=== PATIENT | female | born 1990 | race Caucasian/White ===

== ENCOUNTER 2016-09-14 17:37 | Emergency (ER) | payer MEDICAID ==
[2016-09-14] MEDS ORDERED: Ondansetron 4 MG/2 ML SDV IVPUSH ONE (18:13)
[2016-09-14] MEDS ORDERED: Sodium Chloride 0.9% 1,000 ML IV SCH (18:15)
[2016-09-14 19:12] VITALS: BP 134/89
[2016-09-14] MEDS ORDERED: Sodium Chloride 0.9% 10 ML Syringe FLUSH PRN (19:28)
[2016-09-14] MEDS ORDERED: Iopamidol 612 MG/ML 150 ML Bottle IV SCH (19:30)
[2016-09-14] MEDS ORDERED: Sodium Chloride 0.9% 100 ML IV SCH (19:30)
[2016-09-14] MEDS ORDERED: Lactated Ringers 1,000 ML IV SCH (19:30)
[2016-09-14] MEDS ORDERED: Ketorolac 30 MG/ML SDV IVPUSH ONE (20:37)
[2016-09-14] MEDS ORDERED: HYDROmorphone 1 MG/ML Syringe IVPUSH ONE (21:11)
--- NOTE | 2016-09-14 21:23 | EDM.PDOC ---
ED HPI GI/ABDOMINAL - General Chief Complaint: Abdominal Pain Stated Complaint: FEVER,VOMITING,BODY ACHES Time Seen by Provider: 09/14/16 18:02 Source: Reports: Patient History Limitations: Reports: No limitations - History of Present Illness INITIAL COMMENTS - FREE TEXT/NARRATIVE: History of present illness: [26-year-old female presenting with epigastric abdominal pain intermittent for the last few days sometimes 10 out of 10 intensity. She has not had anything like this before. She is status post cholecystectomy. She's had low grade fevers. She had an episode of vomiting this morning. 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 She's had a little bit of a headache. She has had no constipation diarrhea or dysuria. No history of recent ulcer was over at 10 years of age she may have had an ulcer and was Helicobacter pylori positive. ] Review of systems: As per history of present illness and below otherwise all systems reviewed and negative. Past medical history: As per history of present illness and as reviewed below otherwise noncontributory. Surgical history: As per history of present illness and as reviewed below otherwise noncontributory. Social history: No reported history of drug or alcohol abuse. Family history: As per history of present illness and as reviewed below otherwise noncontributory. Physical exam: HEENT: Atraumatic, normocephalic, pupils reactive, negative for conjunctival pallor or scleral icterus, mucous membranes moist, throat clear, neck supple, nontender, trachea midline. Lungs: Clear to auscultation, breath sounds equal bilaterally, Heart: S1S2, regular Abdomen: She has tenderness to palpation of the epigastric area her right upper quadrant and right lower quadrant are negative for pain Extremities: Atraumatic, negative for cords or calf pain. Neurovascular unremarkable. Neuro: Awake, alert, oriented. Exam nonfocal. Diagnostics: [CBC shows a slightly low white count he complete metabolic panel shows elevations of AST and ALT alkaline phosphatase is normal her calcium is slightly low. Abdominal pelvic CT was negative.] Therapeutics: [She received IV fluids and IV Dilaudid for pain as well as Zofran] Impression: [Epigastric abdominal pain with elevation of AST and ALT] Plan: [Mid ordered hepatitis panel and she will followup with her primary. I'm sending her out with Dilaudid 2 mg every 6 hours when necessary #10. Her mother is a nurse here at the hospital and to present back in the discussion of her disposition. ] Definitive disposition and diagnosis as appropriate pending reevaluation and review of above. - Related Data Allergies/ADRs: Allergies Allergy/AdvReac Type Severity Reaction Status Date / Time codeine Allergy Intermediate Difficulty Verified 07/31/14 19:12 Breathing clarithromycin [From Biaxin] Allergy Mild Nausea Verified 07/31/14 19:12 sertraline HCl [From Zoloft] Allergy Mild Nausea Verified 07/31/14 19:12 chlorprep Allergy Intermediate Rash Uncoded 07/31/14 19:12 Home Meds: Home Meds Naproxen Sodium [Aleve] 220 mg PO BID PRN 05/16/13 [History] buPROPion [Wellbutrin] 300 mg PO DAILY 05/16/13 [History] Norgestrel-Ethinyl Estradiol [[id number]-89 Tablet] 1 tab PO ASDIRECTED [History] Past Medical History Other HEENT History: tubes at a younger age Other OB/BYN History: s/p C- section 2 weeks ago Other Immunologic History: hx of MRSA has been cleared with 2 negative cultures - Infectious Disease History Infectious Disease History: Reports: Chicken pox, Shingles - Past Surgical History GI Surgical History: Reports: Cholecystectomy Female Surgical History: Reports: Cystectomy Social & Family History - Tobacco Use Smoking Status *Q: Never Smoker Second Hand Smoke Exposure: No - Caffeine Use Caffeine Use: Reports: Soda - Alcohol Use Days Per Week of Alcohol Use: 0 - Recreational Drug Use Recreational Drug Use: No ED ROS GENERAL - Review of Systems Review Of Systems: ROS reveals no pertinent complaints other than HPI. ED EXAM, GI/ABD - Physical Exam Exam: See Below Course - Vital Signs Last Recorded V/S: Last Vital Signs Temp 37.9 C 09/14/16 19:11 Pulse 98 09/14/16 19:11 Resp 18 09/14/16 19:11 BP 134/89 09/14/16 19:11 Pulse Ox 97 09/14/16 19:11 - Orders/Labs/Meds Orders: Active Orders 24 hr Category Date Time Status Abdomen Pelvis w Cont [CT] Stat Exams 09/14/16 19:24 Taken CULTURE URINE [RM] Stat Lab 09/14/16 19:00 Received HEPATITIS PANEL,ACUTE [REF] Stat Lab 09/14/16 21:07 Ordered Iopamidol [Isovue-300 (61%)] Med 09/14/16 19:30 Active 150 ml IV . DIRECTED Lactated Ringers [Ringers, Lactated] 1,000 ml Med 09/14/16 19:30 Active IV ASDIRECTED Sodium Chloride 0.9% [Normal Saline] 1,000 ml Med 09/14/16 18:15 Active IV ASDIRECTED Sodium Chloride 0.9% [Normal Saline] 100 ml Med 09/14/16 19:30 Active IV ASDIRECTED Sodium Chloride 0.9% [Saline Flush] Med 09/14/16 19:28 Active 10 ml FLUSH ASDIRECTED PRN Medication Orders Sodium Chloride (Normal Saline) 1,000 mls @ 999 mls/hr IV ASDIRECTED CACHORRO Last Admin: 09/14/16 18:31 Dose: 999 mls/hr Lactated Ringer's (Ringers, Lactated) 1,000 mls @ 500 mls/hr IV ASDIRECTED CACHORRO Last Admin: 09/14/16 19:29 Dose: 500 mls/hr Sodium Chloride (Normal Saline) 100 mls @ 3 mls/sec IV ASDIRECTED CACHORRO Last Admin: 09/14/16 19:45 Dose: 3 mls/sec Iopamidol (Isovue-300 (61%)) 150 ml IV . DIRECTED CACHORRO Last Admin: 09/14/16 19:45 Dose: 150 ml Sodium Chloride (Saline Flush) 10 ml FLUSH ASDIRECTED PRN PRN Reason: Keep Vein Open Last Admin: 09/14/16 19:45 Dose: 10 ml Labs: Laboratory Tests 09/14/16 09/14/16 09/14/16 Range/Units 18:21 18:21 18:21 WBC 4.2 L (4.5-11.0) K/uL RBC 5.06 (3.30-5.50) M/uL Hgb 15.4 H (12.0-15.0) g/dL Hct 43.6 (36.0-48.0) % MCV 86 (80-98) fL MCH 30 (27-31) pg MCHC 35 (32-36) % Plt Count 246 (150-400) K/uL Neut % (Auto) 61 (36-66) % Lymph % (Auto) 30 (24-44) % [place] % (Auto) 7 H (2-6) % Eos % (Auto) 1 L (2-4) % Baso % (Auto) 1 (0-1) % Sodium 137 L (140-148) mmol/L Potassium 3.6 (3.6-5.2) mmol/L Chloride 102 (100-108) mmol/L Carbon Dioxide 23 (21-32) mmol/L Anion Gap 15.6 H (5.0-14.0) mmol/L BUN 10 (7-18) mg/dL Creatinine 0.8 (0.6-1.0) mg/dL Est Cr Clr Drug Dosing 88.15 mL/min Estimated GFR (MDRD) > 60 (>60) Glucose 106 (74-106) mg/dL Lactic Acid 1.1 (0.4-2.0) mmol/L Calcium 8.4 L (8.5-10.1) mg/dL Total Bilirubin (0.2-1.0) mg/dL Direct Bilirubin (0.0-0.2) mg/dL Indirect Bilirubin AST (15-37) U/L ALT (12-78) U/L Alkaline Phosphatase (46-116) U/L C-Reactive Protein (0.0-0.3) mg/dL Total Protein (6.4-8.2) g/dL Albumin (3.4-5.0) g/dL Globulin (2.3-3.5) g/dL Albumin/Globulin Ratio (1.2-2.2) Amylase (25-115) U/L Lipase (73-393) U/L Urine Color Urine Appearance Urine pH (4.5-8.0) Ur Specific [place] (1.008-1.030) Urine Protein (NEGATIVE) mg/dL Urine Glucose (UA) (NEGATIVE) mg/dL Urine Ketones (NEGATIVE) mg/dL Urine Occult Blood (NEGATIVE) Urine Nitrite (NEGATIVE) Urine Bilirubin (NEGATIVE) Urine Urobilinogen (NORMAL) mg/dL Ur Leukocyte Esterase (NEGATIVE) Urine RBC (0-5) Urine WBC (0-5) Ur Epithelial Cells Amorphous Sediment Urine Bacteria Urine Mucus Urine HCG, Qual Monoscreen (NEGATIVE) 09/14/16 09/14/16 09/14/16 Range/Units 18:21 18:33 18:33 WBC (4.5-11.0) K/uL RBC (3.30-5.50) M/uL Hgb (12.0-15.0) g/dL Hct (36.0-48.0) % MCV (80-98) fL MCH (27-31) pg MCHC (32-36) % Plt Count (150-400) K/uL Neut % (Auto) (36-66) % Lymph % (Auto) (24-44) % [place] % (Auto) (2-6) % Eos % (Auto) (2-4) % Baso % (Auto) (0-1) % Sodium (140-148) mmol/L Potassium (3.6-5.2) mmol/L Chloride (100-108) mmol/L Carbon Dioxide (21-32) mmol/L Anion Gap (5.0-14.0) mmol/L BUN (7-18) mg/dL Creatinine (0.6-1.0) mg/dL Est Cr Clr Drug Dosing mL/min Estimated GFR (MDRD) (>60) Glucose (74-106) mg/dL Lactic Acid (0.4-2.0) mmol/L Calcium (8.5-10.1) mg/dL Total Bilirubin 0.7 (0.2-1.0) mg/dL Direct Bilirubin 0.30 H (0.0-0.2) mg/dL Indirect Bilirubin 0.40 AST 124 H (15-37) U/L ALT 133 H (12-78) U/L Alkaline Phosphatase 96 (46-116) U/L C-Reactive Protein 5.06 H (0.0-0.3) mg/dL Total Protein 7.4 (6.4-8.2) g/dL Albumin 3.6 (3.4-5.0) g/dL Globulin 3.8 H (2.3-3.5) g/dL Albumin/Globulin Ratio 1.0 L (1.2-2.2) Amylase 35 (25-115) U/L Lipase 117 (73-393) U/L Urine Color Yellow Urine Appearance Cloudy Urine pH 6.0 (4.5-8.0) Ur Specific [place] 1.020 (1.008-1.030) Urine Protein Negative (NEGATIVE) mg/dL Urine Glucose (UA) Normal (NEGATIVE) mg/dL Urine Ketones Negative (NEGATIVE) mg/dL Urine Occult Blood Negative (NEGATIVE) Urine Nitrite Negative (NEGATIVE) Urine Bilirubin Small (NEGATIVE) Urine Urobilinogen 8 (NORMAL) mg/dL Ur Leukocyte Esterase Negative (NEGATIVE) Urine RBC 0-5 (0-5) Urine WBC 5-10 H (0-5) Ur Epithelial Cells Many Amorphous Sediment Not seen Urine Bacteria Many Urine Mucus Many Urine HCG, Qual Negative Monoscreen (NEGATIVE) 09/14/16 Range/Units 19:21 WBC (4.5-11.0) K/uL RBC (3.30-5.50) M/uL Hgb (12.0-15.0) g/dL Hct (36.0-48.0) % MCV (80-98) fL MCH (27-31) pg MCHC (32-36) % Plt Count (150-400) K/uL Neut % (Auto) (36-66) % Lymph % (Auto) (24-44) % [place] % (Auto) (2-6) % Eos % (Auto) (2-4) % Baso % (Auto) (0-1) % Sodium (140-148) mmol/L Potassium (3.6-5.2) mmol/L Chloride (100-108) mmol/L Carbon Dioxide (21-32) mmol/L Anion Gap (5.0-14.0) mmol/L BUN (7-18) mg/dL Creatinine (0.6-1.0) mg/dL Est Cr Clr Drug Dosing mL/min Estimated GFR (MDRD) (>60) Glucose (74-106) mg/dL Lactic Acid (0.4-2.0) mmol/L Calcium (8.5-10.1) mg/dL Total Bilirubin (0.2-1.0) mg/dL Direct Bilirubin (0.0-0.2) mg/dL Indirect Bilirubin AST (15-37) U/L ALT (12-78) U/L Alkaline Phosphatase (46-116) U/L C-Reactive Protein (0.0-0.3) mg/dL Total Protein (6.4-8.2) g/dL Albumin (3.4-5.0) g/dL Globulin (2.3-3.5) g/dL Albumin/Globulin Ratio (1.2-2.2) Amylase (25-115) U/L Lipase (73-393) U/L Urine Color Urine Appearance Urine pH (4.5-8.0) Ur Specific [place] (1.008-1.030) Urine Protein (NEGATIVE) mg/dL Urine Glucose (UA) (NEGATIVE) mg/dL Urine Ketones (NEGATIVE) mg/dL Urine Occult Blood (NEGATIVE) Urine Nitrite (NEGATIVE) Urine Bilirubin (NEGATIVE) Urine Urobilinogen (NORMAL) mg/dL Ur Leukocyte Esterase (NEGATIVE) Urine RBC (0-5) Urine WBC (0-5) Ur Epithelial Cells Amorphous Sediment Urine Bacteria Urine Mucus Urine HCG, Qual Monoscreen Negative (NEGATIVE) Meds: Medications Generic Name Dose Route Start Last Admin Trade Name Freq PRN Reason Stop Dose Admin Sodium Chloride 1,000 mls @ 999 mls/hr 09/14/16 18:15 09/14/16 18:31 Normal Saline IV 999 mls/hr ASDIRECTED CACHORRO Administration Lactated Ringer's 1,000 mls @ 500 mls/hr 09/14/16 19:30 09/14/16 19:29 Ringers, Lactated IV 500 mls/hr ASDIRECTED CACHORRO Administration Sodium Chloride 100 mls @ 3 mls/sec 09/14/16 19:30 09/14/16 19:45 Normal Saline IV 3 mls/sec ASDIRECTED CACHORRO Administration Iopamidol 150 ml 09/14/16 19:30 09/14/16 19:45 Isovue-300 (61%) IV 150 ml . DIRECTED CACHORRO Administration Sodium Chloride 10 ml 09/14/16 19:28 09/14/16 19:45 Saline Flush FLUSH 10 ml ASDIRECTED PRN Administration Keep Vein Open Discontinued Medications Generic Name Dose Route Start Last Admin Trade Name Freq PRN Reason Stop Dose Admin Hydromorphone HCl 1 mg 09/14/16 21:11 Dilaudid IVPUSH 09/14/16 21:12 ONETIME ONE Ketorolac Tromethamine 15 mg 09/14/16 20:37 09/14/16 20:42 Toradol IVPUSH 09/14/16 20:38 15 mg ONETIME ONE Administration Ondansetron HCl 4 mg 09/14/16 18:13 09/14/16 18:33 Zofran IVPUSH 09/14/16 18:14 4 mg ONETIME ONE Administration Departure - Departure Time of Disposition: 21:21 Disposition: Home, Self-Care 01 Condition: fair Clinical Impression: Epigastric abdominal pain, Abnormal liver enzymes Forms: ED Department Discharge Additional Instructions: Please followup with your primary care doctor. We are doing a hepatitis panel which will probably take a few days to get back. I to get to feeling better soon. If you become much sicker than he will need to return to the emergency room for another evaluation - My Orders Last 24 Hours: My Active Orders 09/14/16 18:15 Sodium Chloride 0.9% [Normal Saline] 1,000 ml IV ASDIRECTED 09/14/16 19:00 CULTURE URINE [RM] Stat 09/14/16 19:24 Abdomen Pelvis w Cont [CT] Stat 09/14/16 19:28 Sodium Chloride 0.9% [Saline Flush] 10 ml FLUSH ASDIRECTED PRN 09/14/16 19:30 Iopamidol [Isovue-300 (61%)] 150 ml IV . DIRECTED Lactated Ringers [Ringers, Lactated] 1,000 ml IV ASDIRECTED Sodium Chloride 0.9% [Normal Saline] 100 ml IV ASDIRECTED 09/14/16 21:07 HEPATITIS PANEL,ACUTE [REF] Stat - Assessment/Plan Last 24 Hours: My Active Orders 09/14/16 18:15 Sodium Chloride 0.9% [Normal Saline] 1,000 ml IV ASDIRECTED 09/14/16 19:00 CULTURE URINE [RM] Stat 09/14/16 19:24 Abdomen Pelvis w Cont [CT] Stat 09/14/16 19:28 Sodium Chloride 0.9% [Saline Flush] 10 ml FLUSH ASDIRECTED PRN 09/14/16 19:30 Iopamidol [Isovue-300 (61%)] 150 ml IV . DIRECTED Lactated Ringers [Ringers, Lactated] 1,000 ml IV ASDIRECTED Sodium Chloride 0.9% [Normal Saline] 100 ml IV ASDIRECTED 09/14/16 21:07 HEPATITIS PANEL,ACUTE [REF] Stat
== END 2016-09-14 21:52 | disposition home or self-care (01) ==
LOC: JP.ED 17:37
DX: R10.13 Epigastric pain (principal); R74.8 Abnormal levels of other serum enzymes; R94.5 Abnormal results of liver function studies; Z88.5 Allergy status to narcotic agent; Z88.8 Allergy status to other drugs, medicaments and biological substances; Z79.899 Other long term (current) drug therapy; Z90.49 Acquired absence of other specified parts of digestive tract
CPT/HCPCS: 36415; 74177; 80048; 80074; 80076; 81001; 81025; 82150; 83605; 83690; 85025; 86140; 86308; 87086; 96361; 96374; 96375; 99284; J1170; J1885; J2405; J7030; J7040; J7050; J7120; 87088; 87186

== ENCOUNTER 2016-09-17 18:42 | Emergency (ER) | payer MEDICAID ==
--- NOTE | 2016-09-17 20:09 | EDM.PDOC ---
ED HPI GI/ABDOMINAL - General Chief Complaint: Gastrointestinal Problem Stated Complaint: ILLNESS Time Seen by Provider: 09/17/16 19:42 Source: Reports: Patient, Old records, RN notes reviewed History Limitations: Reports: No limitations - History of Present Illness INITIAL COMMENTS - FREE TEXT/NARRATIVE: 26-year-old female presents emergency department today with complaint of right upper quadrant pain, diarrhea and fever she was evaluated emergency department 5 days prior for the right upper quadrant pain workup at that time shows elevated AST and ALT with a ratio 1-1, C-reactive protein elevated at 5 mildly elevated direct bilirubin CT scan of the scan of the abdomen shows no acute abdominal process, her largest concern today is the development of the diarrhea which has been going on for about 2 days loose watery stools. The pain in the abdomen is controlled with Dilaudid she does have intermittent nausea which is controlled with Zofran - Related Data Allergies/ADRs: Allergies Allergy/AdvReac Type Severity Reaction Status Date / Time codeine Allergy Intermediate Difficulty Verified 09/17/16 19:24 Breathing clarithromycin [From Biaxin] Allergy Mild Nausea Verified 09/17/16 19:24 sertraline HCl [From Zoloft] Allergy Mild Nausea Verified 09/17/16 19:24 chlorprep Allergy Intermediate Rash Uncoded 09/17/16 19:24 Home Meds: Home Meds Naproxen Sodium [Aleve] 220 mg PO BID PRN 05/16/13 [History] buPROPion [Wellbutrin] 300 mg PO DAILY 05/16/13 [History] Norgestrel-Ethinyl Estradiol [Uea-Urqynjdj-75 Tablet] 1 tab PO ASDIRECTED [History] Past Medical History HEENT History: Reports: Impaired vision Other HEENT History: tubes at a younger age [employer] History: Reports: Other OB/BYN History: s/p C- section 2 weeks ago Psychiatric History: Reports: Anxiety Immunologic History: Reports: Other (see below) Other Immunologic History: hx of MRSA has been cleared with 2 negative cultures - Infectious Disease History Infectious Disease History: Reports: Chicken pox, MRSA - Past Surgical History HEENT Surgical History: Reports: Myringotomy w tube(s) GI Surgical History: Reports: Cholecystectomy Female Surgical History: Reports: section, Cystectomy Social & Family History - Tobacco Use Smoking Status *Q: Never Smoker Second Hand Smoke Exposure: No - Caffeine Use Caffeine Use: Reports: Soda - Alcohol Use Days Per Week of Alcohol Use: 0 - Recreational Drug Use Recreational Drug Use: No ED ROS GENERAL - Review of Systems Review Of Systems: See Below Constitutional: Reports: fever HEENT: Reports: No symptoms Respiratory: Reports: No Symptoms Cardiovascular: Reports: No symptoms GI/Abdominal: Reports: Abdominal pain, Diarrhea, Nausea. Denies: Vomiting Musculoskeletal: Reports: no symptoms Skin: Reports: no symptoms Neurological: Reports: No Symptoms ED EXAM, GI/ABD - Physical Exam Exam: See Below Text/Narrative:: General: female, not in any distress, alert and oriented x3 HEENT: head is atraumatic normocephalic, eyes pupils equal round reactive to light and accommodation sclera clear no conjunctivitis appreciated. Ears tympanic membranes clear and zamora landmarks and light reflex are present bilaterally canals are clear. Nose no septal deviation, nares are clear, no blood present. Mouth mucosa is moist and pink no erythema or exudate noted in soft palate, tongue is midline uvula is midline, dentition is intact. Neck: Supple no thyromegaly no tracheal deviation. Nodes: Cervical nodes subclavicular nodes nontender no palpable lymphadenopathy noted. Lungs: clear to auscultation bilaterally with symmetrical respirations, no adventitious noise appreciated. CV: Regular rate and rhythm S1 and S2 appreciated no murmurs rubs or gallops noted. Abdomen: Soft, tender epigastric region, no palpable masses or organomegaly appreciated, no distention no guarding bowel sounds are present, . Neuro: Cranial nerves II through XII grossly intact Skin: Warm and dry, intact Extremities: No lower extremity edema appreciated, Course - Vital Signs Last Recorded V/S: Last Vital Signs Temp 100.4 F 09/17/16 19:24 Pulse 77 09/17/16 21:24 Resp 20 09/17/16 21:24 BP 127/84 09/17/16 21:24 Pulse Ox 96 09/17/16 21:24 - Orders/Labs/Meds Orders: Active Orders 24 hr Category Date Time Status Abdomen Ltd [US] Stat Exams 09/17/16 20:04 Taken Labs: Laboratory Tests 09/17/16 09/17/16 09/17/16 Range/Units 20:15 20:15 20:15 WBC 5.7 (4.5-11.0) K/uL RBC 4.87 (3.30-5.50) M/uL Hgb 14.6 (12.0-15.0) g/dL Hct 42.6 (36.0-48.0) % MCV 88 (80-98) fL MCH 30 (27-31) pg MCHC 34 (32-36) % Plt Count 242 (150-400) K/uL Neut % (Auto) 47 (36-66) % Lymph % (Auto) 40 (24-44) % [place] % (Auto) 9 H (2-6) % Eos % (Auto) 3 (2-4) % Baso % (Auto) 2 H (0-1) % PT (9.5-12.0) sec INR (0.80-1.20) Sodium 141 (140-148) mmol/L Potassium 3.4 L (3.6-5.2) mmol/L Chloride 104 (100-108) mmol/L Carbon Dioxide 25 (21-32) mmol/L Anion Gap 15.4 H (5.0-14.0) mmol/L BUN 8 (7-18) mg/dL Creatinine 0.9 (0.6-1.0) mg/dL Est Cr Clr Drug Dosing 78.36 mL/min Estimated GFR (MDRD) > 60 (>60) Glucose 83 (74-106) mg/dL Calcium 8.2 L (8.5-10.1) mg/dL Total Bilirubin 0.4 (0.2-1.0) mg/dL AST 79 H (15-37) U/L ALT 159 H (12-78) U/L Alkaline Phosphatase 130 H (46-116) U/L C-Reactive Protein 1.31 H (0.0-0.3) mg/dL Total Protein 7.1 (6.4-8.2) g/dL Albumin 3.3 L (3.4-5.0) g/dL Globulin 3.8 H (2.3-3.5) g/dL Albumin/Globulin Ratio 0.9 L (1.2-2.2) // Range/Units 20:22 WBC (4.5-11.0) K/uL RBC (3.30-5.50) M/uL Hgb (12.0-15.0) g/dL Hct (36.0-48.0) % MCV (80-98) fL MCH (27-31) pg MCHC (32-36) % Plt Count (150-400) K/uL Neut % (Auto) (36-66) % Lymph % (Auto) (24-44) % [place] % (Auto) (2-6) % Eos % (Auto) (2-4) % Baso % (Auto) (0-1) % PT 10.6 (9.5-12.0) sec INR 1.00 (0.80-1.20) Sodium (140-148) mmol/L Potassium (3.6-5.2) mmol/L Chloride (100-108) mmol/L Carbon Dioxide (21-32) mmol/L Anion Gap (5.0-14.0) mmol/L BUN (7-18) mg/dL Creatinine (0.6-1.0) mg/dL Est Cr Clr Drug Dosing mL/min Estimated GFR (MDRD) (>60) Glucose (74-106) mg/dL Calcium (8.5-10.1) mg/dL Total Bilirubin (0.2-1.0) mg/dL AST (15-37) U/L ALT (12-78) U/L Alkaline Phosphatase (46-116) U/L C-Reactive Protein (0.0-0.3) mg/dL Total Protein (6.4-8.2) g/dL Albumin (3.4-5.0) g/dL Globulin (2.3-3.5) g/dL Albumin/Globulin Ratio (1.2-2.2) Departure - Departure Time of Disposition: 22:07 Disposition: Home, Self-Care 01 Condition: good Clinical Impression: Epigastric abdominal pain Forms: ED Department Discharge Additional Instructions: continue to use your pain medications as prescribed, use Zofran as needed for nausea and vomiting symptoms try the Anaspaz for cramping symptoms, keep your followup appointment with her primary care provider - My Orders Last 24 Hours: My Active Orders 09/17/16 20:04 op5 [US] Stat - Assessment/Plan Last 24 Hours: My Active Orders 09/17/16 20:04 op5 [US] Stat Plan: Assessment Acuity = acute Site and laterality =right upper quadrant pain suspicious for hepatitis Etiology = unclear etiology Manifestations = fever Location of injury = home Lab values = CBC within normal limits, potassium low at 2.4 consistent hypokalemia KCl elevated at 79 ALT elevated 159 alkaline phosphatase elevated at 1:30 CRP now down to 1.31 ultrasound was negative for any fatty liver disease otherwise unremarkable Plan I did review lab work and ultrasound results with her hepatitis panel is pending she'll follow up with her primary care appointment on the fifth of next month refilled medication of Zofran also prescription for Anaspaz Patient was in agreement with the plan all questions were answered, they were instructed to return to the emergency department or call for worsening symptoms. This note was dictated using [employer] voice recognition software please call with any questions.
[2016-09-17 21:25] VITALS: BP 127/84
== END 2016-09-17 22:17 | disposition home or self-care (01) ==
LOC: JP.ED 18:42
DX: R10.13 Epigastric pain (principal); F41.9 Anxiety disorder, unspecified; Z88.1 Allergy status to other antibiotic agents; Z88.5 Allergy status to narcotic agent; Z88.8 Allergy status to other drugs, medicaments and biological substances; Z96.22 Myringotomy tube(s) status; Z90.49 Acquired absence of other specified parts of digestive tract; Z98.890 Other specified postprocedural states
CPT/HCPCS: 36415; 76705; 80053; 85025; 85610; 86140; 99284-25

== ENCOUNTER 2019-03-04 12:26 | Emergency (ER) | payer BC, MEDICAID ==
[2019-03-04 13:32] VITALS: BP 128/71
[2019-03-04] MEDS ORDERED: Lidocaine 2% Viscous Solution 15 ML Cup PO ONE (13:48)
--- NOTE | 2019-03-04 13:53 | EDM.PDOC ---
ED HPI GENERAL MEDICAL PROBLEM - General Chief Complaint: Gastrointestinal Problem Stated Complaint: FEELS LIKE FOOD IS STUCK IN THROAT Time Seen by Provider: 03/04/19 13:35 Source of Information: Reports: Patient History Limitations: Reports: No Limitations - History of Present Illness INITIAL COMMENTS - FREE TEXT/NARRATIVE: 29-year-old female who ate breakfast this morning at 9:30, since that time she feels like there is something stuck in her throat. She is able to swallow, drink fluids and swallow solid foods without problem. It's getting very upset and tearful. No difficulties breathing. It really isn't painful, it just feels very uncomfortable. Onset: Sudden Duration: Hour(s): (5 hours) Location: Reports: Other (She points to her upper chest as a source of discomfort) Associated Symptoms: Reports: No Other Symptoms throat Pain Score (Numeric/FACES): 4 - Related Data Allergies Allergy/AdvReac Type Severity Reaction Status Date / Time codeine Allergy Intermediate Difficulty Verified 03/04/19 13:35 Breathing clarithromycin [From Biaxin] Allergy Mild Nausea Verified 03/04/19 13:35 sertraline HCl [From Zoloft] Allergy Mild Nausea Verified 03/04/19 13:35 chlorprep Allergy Intermediate Rash Uncoded 03/04/19 13:35 Home Meds: Home Meds NK [No Known Home Meds] 03/04/19 [History] Past Medical History HEENT History: Reports: Impaired Vision Other HEENT History: tubes at a younger age 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: Other SOFTWARE PROGRAM MANAGER History: s/p C- section 2 weeks ago Psychiatric History: Reports: Anxiety Immunologic History: Reports: Other (See Below) Other Immunologic History: hx of MRSA has been cleared with 2 negative cultures - Infectious Disease History Infectious Disease History: Reports: Chicken Pox, MRSA - Past Surgical History HEENT Surgical History: Reports: Myringotomy w Tube(s) GI Surgical History: Reports: Cholecystectomy Female Surgical History: Reports: Section, Cystectomy Social & Family History - Tobacco Use Smoking Status *Q: Never Smoker - Caffeine Use Caffeine Use: Reports: Soda - Recreational Drug Use Recreational Drug Use: No ED ROS GENERAL - Review of Systems Review Of Systems: See Below Constitutional: Denies: Fever, Chills HEENT: Reports: Other (Foreign body sensation in throat) Respiratory: Denies: Shortness of Breath, Pleuritic Chest Pain Cardiovascular: Denies: Chest Pain GI/Abdominal: Denies: Nausea, Vomiting Skin: Reports: No Symptoms Neurological: Denies: Headache ED EXAM, GI/ABD - Physical Exam Exam: See Below Exam Limited By: No Limitations General Appearance: Alert, No Apparent Distress, Anxious Eyes: Bilateral: Normal Appearance Throat/Mouth: Normal Inspection Respiratory/Chest: No Respiratory Distress, Lungs Clear Cardiovascular: Regular Rate, Rhythm GI/Abdominal Exam: Non-Tender Course - Vital Signs Last Recorded V/S: Last Vital Signs Temp 97.4 F 03/04/19 13:34 Pulse 89 03/04/19 13:34 Resp 16 03/04/19 13:34 BP 128/71 03/04/19 13:34 Pulse Ox 98 03/04/19 13:34 - Orders/Labs/Meds Meds: Medications Discontinued Medications Generic Name Dose Route Start Last Admin Trade Name Chavoq PRN Reason Stop Dose Admin Lidocaine HCl 15 ml 03/04/19 13:48 03/04/19 13:58 Xylocaine 2% Viscous PO 03/04/19 13:49 15 ml ONETIME ONE Administration - Re-Assessments/Exams Free Text/Narrative Re-Assessment/Exam: 03/04/19 13:53 Patient was given 15 mL of viscous lidocaine to swallow. 03/04/19 14:21 A few minutes after the viscous lidocaine her symptoms were resolved. She swallowed water without problem. She was given 100 mL of viscous lidocaine to use when necessary and if symptoms persist she should talk to her primary provider this week about setting up an EGD. Departure - Departure Time of Disposition: 14:35 Disposition: Home, Self-Care 01 Clinical Impression: Odynophagia - Discharge Information Instructions: Dysphagia Referrals: Ayan Gutierrez MD [Primary Care Provider] - Forms: ED Department Discharge Care Plan Goals: Use numbing medicine every 4 hours if needed. Consider rechecking in 2-3 days if not improving satisfactorily.
== END 2019-03-04 14:34 | disposition home or self-care (01) ==
LOC: JP.ED 12:26
DX: R13.10 Dysphagia, unspecified (principal); Z88.5 Allergy status to narcotic agent; Z88.1 Allergy status to other antibiotic agents; Z88.8 Allergy status to other drugs, medicaments and biological substances; Z86.14 Personal history of Methicillin resistant Staphylococcus aureus infection
CPT/HCPCS: 99283; A9270

== ENCOUNTER 2020-01-17 06:37 | Inpatient (IN) | payer BC ==
[2020-01-17] MEDS ORDERED: Lactated Ringers 1,000 ML IV SCH (07:00)
[2020-01-17] MEDS ORDERED: Ondansetron 4 MG/2 ML SDV ONE (07:24)
[2020-01-17] MEDS ORDERED: Lactated Ringers 1,000 ML ONE (07:26)
[2020-01-17] MEDS ORDERED: Oxytocin 10 Units/1 ML SDV ONE (08:12)
[2020-01-17] MEDS ORDERED: cefOXitin 1 GM Vial ONE (08:13)
[2020-01-17] MEDS ORDERED: Phenylephrine 1% 10 MG/ML SDV ONE (08:33)
[2020-01-17] MEDS ORDERED: ePHEDrine 50 MG/ML SDV ONE (08:38)
[2020-01-17] MEDS ORDERED: Sodium Chloride 0.9% 10 ML ONE ×2 (08:38→09:28)
[2020-01-17] MEDS: Oxytocin 10 Units/1 ML SDV ONE ×2 (09:28→09:44)
[2020-01-17] MEDS ORDERED: cefOXitin 2 GM Vial ONE (09:28)
[2020-01-17] MEDS ORDERED: Naloxone 0.4 MG/ML SDV IVPUSH PRN (09:53)
[2020-01-17] MEDS ORDERED: HYDROmorphone/Normal Saline 15 MG/30 ML PCA IV PRN (09:53)
[2020-01-17] MEDS ORDERED: Cetirizine 10 MG Tab PO PRN (10:23)
[2020-01-17] MEDS ORDERED: hydrOXYzine HCl 25 MG Tab PO PRN (10:24)
[2020-01-17] MEDS ORDERED: hydrOXYzine HCL 100 MG/2 ML SDV IM ONE (10:29)
[2020-01-17] MEDS ORDERED: Naloxone 0.4 MG/ML SDV IV PRN (11:00)
[2020-01-17] MEDS ORDERED: Ondansetron 4 MG/2 ML SDV IVPUSH PRN (11:00)
[2020-01-17] MEDS: Ibuprofen 600 MG Tab PO SCH ×3 (11:49→22:36)
[2020-01-17] MEDS: Acetaminophen 500 MG Tab PO SCH ×3 (12:52→21:24)
[2020-01-17] MEDS: Dextrose 5%-Lactated Ringers 1,000 ML IV SCH ×2 (13:56→21:23)
[2020-01-17] MEDS: cefOXitin 2 GM in Sodium Chloride 0.9% 50 ML IV SCH ×2 (15:09→21:22)
[2020-01-18] MEDS: Dextrose 5%-Lactated Ringers 1,000 ML IV SCH ×3 (03:04→23:14)
[2020-01-18] MEDS: cefOXitin 2 GM in Sodium Chloride 0.9% 50 ML IV SCH (03:05)
[2020-01-18] MEDS: Ibuprofen 600 MG Tab PO SCH ×5 (05:09→23:13)
[2020-01-18] MEDS: Acetaminophen 500 MG Tab PO SCH ×4 (06:18→23:12)
[2020-01-18] MEDS: Docusate Sodium 100 MG Cap PO SCH ×2 (08:45→20:24)
[2020-01-18] MEDS: Bisacodyl 5 MG Tab PO SCH ×2 (08:45→20:24)
--- NOTE | 2020-01-18 09:42 | PN ---
DATE OF SERVICE: 01/18/2020 The patient is postop day #1 from elective section. Postoperatively, no major problems have been noted. Pain control, is still requiring SALES PROFESSIONAL BILINGUAL, and we will leave that on board for another day. Otherwise, begin some bowel stimulation, back down the IV rate. She should be going up to regular diet. Maximize activity and work with pulmonary toilet. Rex Li MD /[id number]
[2020-01-19] MEDS ORDERED: Lanolin 100% Cream 40 GM Tube TOP PRN (03:08)
[2020-01-19] MEDS: Ibuprofen 600 MG Tab PO SCH ×4 (05:19→22:15)
[2020-01-19] MEDS: Acetaminophen 500 MG Tab PO SCH ×4 (05:19→22:15)
[2020-01-19] MEDS: Bisacodyl 5 MG Tab PO SCH ×2 (08:25→20:17)
[2020-01-19] MEDS: Docusate Sodium 100 MG Cap PO SCH ×2 (08:25→20:17)
[2020-01-19] MEDS ORDERED: Magnesium Hydroxide 400 MG/5 ML Susp 30 ML Cup PO ONE (09:00)
[2020-01-19] MEDS: traMADol 50 MG Tab PO PRN ×3 (09:17→22:17)
--- NOTE | 2020-01-19 12:51 | OR ---
DATE OF PROCEDURE: 01/17/2020 SURGEON: Rex Li MD PREOPERATIVE DIAGNOSIS: Term with history of previous section. POSTOPERATIVE DIAGNOSIS: Term with history of previous section. OPERATIVE PROCEDURE: Repeat section (73174). ANESTHESIA: Spinal. FABRICATION TECHNICIAN: Natali Boss CNM INDICATIONS FOR PROCEDURE: A 29-year-old presenting with a term with history of previous section, desired to proceed with a scheduled repeat section at this time. Potential risks of the procedure including bleeding, infection, injury to mother and her baby were reviewed, and the patient wishes to proceed. DETAILS OF PROCEDURE: The patient was taken to the operating room and placed in the supine position. After spinal anesthetic had been induced and a Santiago catheter inserted, a roll was placed underneath the right hip to offload the vena cava and the abdomen prepped and draped. The previous Pfannenstiel incision was then reused and carried down through the skin and subcutaneous tissue and through the rectus abdominis fascia, subrectus sheath flaps were then raised superiorly and inferiorly and the midline fascia then divided. The peritoneal reflection of the bladder on the uterus was then divided and the bladder reflected downward. A transverse uterine incision was made and carried through the full thickness of the uterus and a viable male was delivered without difficulty through a vertex presentation. The cord was clamped and cut. Routine care given off the field per Dr. Natali Boss CNM. The patient was given IV intrauterine oxytocin and IV cefoxitin. Good uterine contractions were noted. The placenta was delivered without difficulty. The uterus was then closed with 2 layers of 2-0 Vicryl stitch as was the peritoneal reflection of the bladder on the uterus. The midline musculature and peritoneum were then approximated with a #2 Vicryl stitch as was the anterior rectus sheath. The subcutaneous tissue was then irrigated with cefoxitin-containing saline solution and closed with 2 layers of 3-0 and 4-0 Vicryl stitch deep and then a 4-0 Vicryl subcuticular stitch. Dressing was applied. The patient was taken to the recovery room in satisfactory condition. There were no evident complications. Rex Li MD /[id number]
--- NOTE | 2020-01-19 12:58 | PN ---
DATE OF SERVICE: 01/19/2020 The patient is postoperative day 2 from repeat section. Both baby and mother are doing well. She has not moved her bowels some bowel stimulation. Otherwise, we will move her to exclusively oral pain medication today and tramadol and replacing the SMOKE TESTER. Give her some additional bowel stimulation. She will likely be ready for discharge home tomorrow. Rex Li MD /[id number]
[2020-01-20] MEDS: traMADol 50 MG Tab PO PRN (04:25)
[2020-01-20] MEDS: Acetaminophen 500 MG Tab PO SCH (05:51)
[2020-01-20] MEDS: Ibuprofen 600 MG Tab PO SCH (05:51)
[2020-01-20 08:51] VITALS: BP 130/81; PULSE 85
--- NOTE | 2020-01-20 12:08 | DISCH ---
ADMISSION DIAGNOSES: Term , history of previous . DISCHARGE DIAGNOSIS: Repeat section. Date: 01/17/2020. Surgeon: Rex Li. HISTORY: Louise Santos is a 29-year-old female, presenting with a term and history of previous with desire to proceed with a scheduled repeat . After preoperative evaluation and discussion of possible risks and possible complications, she wished to proceed with surgical procedure. HOSPITAL COURSE: Louise had her surgery on 01/17/2020. She had no operative complications. On postoperative day #1, her IV rate was decreased. She was started on bowel stimulation, SAP BUSINESS OBJECTS DEVELOPER required a SAP BUSINESS OBJECTS DEVELOPER, which will be left in for another day. On postoperative day #2, she was doing well. Has not had a bowel movement yet. Started oral pain medication of tramadol to replace SAP BUSINESS OBJECTS DEVELOPER, and she was given some extra bowel stimulation. On 01/20/2020, pain was controlled with ibuprofen, Tylenol and tramadol. She had 2 bowel movements. Vital signs stable. Activity was good. She was able to be discharged to home without any complications. PHYSICAL EXAMINATION: GENERAL: Louise Santos is a 29-year-old female. VITAL SIGNS: Height 5 feet 3 inches, weight is 264 pounds, BMI is 46. TPR at 0200, 96.5; 74; 19; blood pressure 124/76. HEENT: Negative. NECK: Supple. HEART: Regular rate and rhythm. LUNGS: Clear. ABDOMEN: incision has been glued, healing well. EXTREMITIES: Without peripheral edema. DISPOSITION: Discharged to home. CONDITION: Stable and improving. FOLLOWUP: Appointment with Pauline Esposito PA-C, on 01/27/2020 at 12:30 a.m. She is to follow up with Natali Boss CNM, on 01/30/2020 at 2:45 p.m., and a 6-week followup on 02/28/2020 at 10 a.m. HOME MEDICATIONS: 1. Colace 100 mg b.i.d. #60. 2. She is to take home the lanolin topical cream, use as directed. 3. Motrin 600 mg oral 4 times daily, #40 for pain. 4. Tylenol Extra Strength 1000 mg 4 times a day p.r.n. pain. 5. Tramadol 50 mg oral q.6 hours p.r.n. pain, #28. 6. To resume home medication of vitamins 1 daily. DIET AFTER DISCHARGE: Usual diet as tolerated. Drink 8 to 10 glasses of water a day. ACTIVITY AFTER DISCHARGE: As tolerated. No lifting greater than 10 pounds or no lifting more than baby in car seat. DRIVING AFTER DISCHARGE: Do not drive for 1 week and while on pain medication. Shower/bathing: May shower. No tub bathing, swimming for at least 6 weeks. Notify provider if any fever, increased pain, swelling, redness, drainage. Keep site clean and dry. Wear abdominal binder for 2 weeks and then as tolerated. SPECIAL INSTRUCTIONS: Use incentive spirometer 10 times every hour while awake for 1 week.
== END 2020-01-20 10:12 | disposition home or self-care (01) | DRG 540 ==
LOC: JP.SDS 06:37 → JP.SDSSCHI 06:37 → EDSTATUS 08:45 → JP.MS 09:26
PROVIDERS: ADMIT Surgery; ATTEND Surgery
PROC: 10D00Z1 Extraction of Products of Conception, Low, Open Approach (ICD-10-PCS; principal; 2020-01-17)
DX: O34.211 Maternal care for low transverse scar from previous cesarean delivery (principal); Z3A.39 39 weeks gestation of pregnancy; Z37.0 Single live birth; Z79.899 Other long term (current) drug therapy
CPT/HCPCS: 36415; 59409; 80048; 80305-QW; 85027; 86850; 86900; 86901; 88307; 94762; A9270-GY; J0694; J1170; J2370; J2405; J2590; J3410; J7050; J7120; J7121